=== PATIENT | female | born 1970 | race Caucasian/White ===

== ENCOUNTER 2017-08-06 17:49 | Emergency (ER) | payer MEDICAID, MEDICARE ==
[~2017-08-06] VITALS: Ht 162.6 cm; Wt 117.4 kg
[~2017-08-06 17:49] MED LIST: AZAT50TA20 PO; BUSPAR PO; BUTAL PO; CHOL20002 PO; GABA300C10 PO; HYDR50TA13 PO; LANS15TA6 PO; OXYC-302 PO; PRED20TA PO; QUET400T4 PO; RISP3TAB24 PO; SERT50TA PO; SUMA25TA3 PO; TOPI100T24 PO
[2017-08-06 17:52] VITALS: BP 174/93
[2017-08-06] MEDS ORDERED: IBUPROFEN 200 MG TABLET ONE (18:50)
[2017-08-06] MEDS ORDERED: METHOCARBAMOL 750 MG TABLET ONE (18:50)
[2017-08-06] MEDS ORDERED: IBUPROFEN 200 MG TABLET PO ONE (19:00)
[2017-08-06] MEDS ORDERED: METHOCARBAMOL 750 MG TABLET PO ONE (19:00)
== END 2017-08-06 20:00 | disposition left against medical advice (07) ==
LOC: ED 19:54
DX: S39.012A Strain of muscle, fascia and tendon of lower back, initial encounter (principal); M25.552 Pain in left hip; M54.12 Radiculopathy, cervical region; M35.2 Behcet's disease; E66.01 Morbid (severe) obesity due to excess calories; Z68.41 Body mass index [BMI] 40.0-44.9, adult; V89.2XXA Person injured in unspecified motor-vehicle accident, traffic, initial encounter; Y93.89 Activity, other specified; Y92.410 Unspecified street and highway as the place of occurrence of the external cause; Y99.8 Other external cause status
CPT/HCPCS: 72110; 99284

== ENCOUNTER 2017-11-26 20:22 | Emergency (ER) | payer MEDICAID, MEDICARE ==
[~2017-11-26] VITALS: Ht 162.6 cm; Wt 108.4 kg
[2017-11-26 20:26] VITALS: BP 141/85
[2017-11-26] MEDS ORDERED: PROPARACAINE OPHTH 0.5%, 15ML ONE (21:07)
== END 2017-11-26 22:30 ==
LOC: ED 21:25
DX: H20.021 Recurrent acute iridocyclitis, right eye (principal); H54.61 Unqualified visual loss, right eye, normal vision left eye; M35.2 Behcet's disease; I10 Essential (primary) hypertension; G43.909 Migraine, unspecified, not intractable, without status migrainosus; F17.200 Nicotine dependence, unspecified, uncomplicated; Z90.49 Acquired absence of other specified parts of digestive tract
CPT/HCPCS: 99283

== ENCOUNTER 2017-12-03 20:28 | Emergency (ER) | payer MEDICARE ==
[~2017-12-03] VITALS: Ht 162.6 cm; Wt 106.9 kg
[2017-12-03 20:31] VITALS: BP 146/89
== END 2017-12-03 21:31 | disposition home or self-care (01) ==
LOC: ED 21:02
DX: H54.3 Unqualified visual loss, both eyes (principal); I10 Essential (primary) hypertension; E66.01 Morbid (severe) obesity due to excess calories; Z68.41 Body mass index [BMI] 40.0-44.9, adult; Z79.899 Other long term (current) drug therapy; Z88.5 Allergy status to narcotic agent; Z88.1 Allergy status to other antibiotic agents; Z88.8 Allergy status to other drugs, medicaments and biological substances
CPT/HCPCS: 99281